=== PATIENT | female | born 1975 | race Caucasian/White ===

== ENCOUNTER 2021-12-18 04:05 | Emergency (ER) | payer OTHER ==
[~2021-12-18] VITALS: Ht 175.3 cm; Wt 86.2 kg
[2021-12-18] MEDS ORDERED: ALBU90OI INH (04:34)
[2021-12-18] MEDS ORDERED: Chantix1 MG (04:34)
[2021-12-18] MEDS ORDERED: OMEP20ER PO (04:34)
[2021-12-18] MEDS ORDERED: EUTHYROX125 MCG PO (04:35)
[2021-12-18] MEDS ORDERED: HYDR1TAB94 PO (06:34)
[2021-12-18] MEDS ORDERED: AMOCLA875 PO (06:34)
== END 2021-12-18 06:44 | disposition home or self-care (01) ==
LOC: ER 04:05
DX: K08.89 Other specified disorders of teeth and supporting structures (principal); G89.18 Other acute postprocedural pain; E03.9 Hypothyroidism, unspecified; K21.9 Gastro-esophageal reflux disease without esophagitis; Z79.899 Other long term (current) drug therapy; F17.210 Nicotine dependence, cigarettes, uncomplicated
CPT/HCPCS: 99282; A9270

== ENCOUNTER 2022-12-22 20:53 | Emergency (ER) | payer OTHER ==
[~2022-12-22] VITALS: Ht 175.3 cm; Wt 79.4 kg
[~2022-12-22 20:53] MED LIST: ALBU90OI INH; AMOCLA875 PO; Chantix1 MG; EUTHYROX125 MCG PO; HYDR1TAB94 PO; OMEP20ER PO
[2022-12-22] MEDS ORDERED: Cyclobenzaprine5 MG PO (22:33)
== END 2022-12-22 22:42 | disposition home or self-care (01) ==
LOC: ER 20:53
DX: M54.6 Pain in thoracic spine (principal); X50.0XXA Overexertion from strenuous movement or load, initial encounter; F17.210 Nicotine dependence, cigarettes, uncomplicated; Z88.6 Allergy status to analgesic agent; Z79.899 Other long term (current) drug therapy
CPT/HCPCS: A9270; J1885

== ENCOUNTER 2023-07-11 12:16 | Emergency (ER) | payer OTHER ==
[~2023-07-11] VITALS: Ht 175.3 cm; Wt 68.0 kg
[~2023-07-11 12:16] MED LIST changes: +Cyclobenzaprine5 MG PO
[2023-07-11 12:40] VITALS: BP 121/84
[2023-07-11] MEDS ORDERED: ALBU90OI INH (12:42)
== END 2023-07-11 12:45 | disposition home or self-care (01) ==
LOC: ER 12:16
DX: J45.901 Unspecified asthma with (acute) exacerbation (principal); F17.210 Nicotine dependence, cigarettes, uncomplicated; Z88.5 Allergy status to narcotic agent; Z79.899 Other long term (current) drug therapy
CPT/HCPCS: 99284